=== PATIENT | male | born 1995 | race Caucasian/White ===

== ENCOUNTER → 2024-10-01 10:43 | Outpatient (CLI) | payer OTHER, SELFPAY ==
--- NOTE | 2024-10-02 14:09 | ST.SWALLOW ---
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 He was referred by Dr. Keller who reported oropharyngeal and laryngeal structures to be WNL. According to the pt, he has been having swallow difficulty with foods such as rice, chicken, steak and fries and liquids for the past 5-6 years. He noted that when he wakes up in the morning, he will sometimes be unable to drink water. Additionally, he described episodes of drinking water after a few bites of food and the water then returns to his mouth. Solids are not regurgitated. When asked where he feels the food get stuck, he pointed to his neck near the sternal notch; but also noted he feels tension above his larynx as though he has to push the food/liquid down. Pt denied a PMH of GERD or head/neck injury or surgery. When asked about any neurological diagnosis, the pt responded with no, but my lower body has been getting progressively weaker over the past 4-5 years. He stated that his hips, knees and ankles will unexpectedly give out'. He described walking as slow and not right. Pt denied weakness in his arms, hands or upper body. He added that he often has GI/stomach issues/diarrhea unexpectedly. Subjective Pt was seated in the flouroscopy chair with directions Observations and procedures explained for him. He indicated he understood and agreed to proceed. Patient Positioning Position View Lat-A/P Imaging Lateral View Textures Administered Trials Presented Thin Liquid via Spoon (IDDSI 0),Thin Liquid via Cup ( IDDSI 0),Extremely Thick Liquid via Spoon (IDDSI 4), Regular (IDDSI 7) Barium Tablet Yes The IDDSI Framework Protocol: IDDSI.1 Oral Impairment Source: The Modified Barium Swallow Impairment Profile (MBSImP??) Lip Closure No labial escape Tongue Control Cohesive bolus between tongue to palatal seal During Bolus Hold Bolus Preparation/ Timely & efficient chewing & mashing Mastication Bolus Transport/ Brisk tongue motion Lingual Motion Oral Residue Complete oral clearance,Residue collection on oral structures Location Tongue Additional Oral *OME indicated facial/labial/velar structures to be Impairment WNL. Observations *Lingually, at rest and with protrusion, slight bilateral muscle fasciculations were observed on the lateral surface of the tongue. ROM, strength and speed of his tongue appeared to be WNL. *DKS was observed to be WNL. *Dentition natural and in good hygiene *Mastication observed with rotary chew pattern. *Good bolus formation, control and AP transition. *Velopharyngeal closure was WNL. Pharyngeal Impairment Source: The Modified Barium Swallow Impairment Profile (MBSImP??) Soft Palate No bolus between soft palate & pharyngeal wall Elevation Laryngeal Elevation Part.sup.move.thyroid cart/part.approx.arytenoids to epiglot.petiole Anterior Hyoid Partial anterior movement Excursion Epiglottic Movement Complete inversion Laryngeal Vestibular Complete; no air/contrast in laryngeal vestibule Closure Pharyngeal Stripping Present - complete Wave Pharyngoesophageal Complete distention & complete duration; no obstruction Segment Opening of flow Tongue Base Narrow column of contrast/air betwn tongue base & post. Retraction pharyngeal wall Pharyngeal Residue Collection of residue within/on pharyngeal structures Location Diffuse (>3 areas) Additional *Pt reported throat tension/pressure with all trials Pharyngeal *Reduced base of tongue retraction strength Impairment *Reduced hyolaryngeal elevation and movement Observations *Complete epiglottal inversion *Pooled residual in valeculla, pyriforms, aryepiglottic folds and posterior pharyngeal wall; pooling cleared with subsequent dry swallows *Flash penetration of laryngeal vestibule observed *No tracheal aspiration observed *In lateral position across all trials, the boluses ( liquid, semi-solid and solid) appeared to move through the upper esophagus more slowly than expected A/P View Textures Administered Trials Presented Thin Liquid via Cup (IDDSI 0) The IDDSI Framework Protocol: IDDSI.1 A/P View Observations Esophageal Clearance Esophageal retention Upright Position Esophageal Function Slowed Clearing Additional A-P Thin barium liquid and 13mm calibrated barium tablet Observations were trialed *Esophageal retention observed; retained contrast partially cleared with water swallow *Thin barium cleared the esophagus to the stomach in a timely manner *Barium tablet stopped at LES (pt reported globus sensation) then cleared to the stomach Clinical Impressions Dysphagia Type Pharyngeal Findings *Pt presented with oral phase of swallow WNL; However , lingual fasciculations were observed with the tongue at rest. Functionally mastication, bolus control and AP transition was observed to be WNL *Overall pharyngeal weakness was noted with reduced base of tongue strength, partial hyolaryngeal elevation and movement and pooling throughout the pharyngeal cavity. This observation is unusual for a 28 year old person *Esophageal retention with slowed clearance was observed, which is also unusual for a 28 year old person Given the pt's report of lower body progressive weakness, GI issues and the above lingual, pharyngeal and esophageal observations, neurological etiology is suspected. As these s/sx have been occurring for 4-6 years, per pt report, a referral to neurology is recommended for further assessment of neuromotor functioning. The above results and recommendations were reviewed with he pt. He stated that he and his are expecting a baby in December and he he is concerned that his lower body weakness may be a problem. Rehabilitation Good Potential Patient Appropriate Yes: Base of tongue exercises for Therapy Recommendations Diet Comments No diet change Treatment Plan Recommended Neurology Referrals
== END ==
LOC: RAD 10:44
PROVIDERS: Referring Provider Otolaryngology; Visit Provider Otolaryngology
DX: R13.13 Dysphagia, pharyngeal phase (principal)
CPT/HCPCS: 74230; 92611

== ENCOUNTER 2025-02-12 17:00 | Outpatient (RCR) | payer OTHER, SELFPAY ==
--- NOTE | 2025-01-15 18:28 | ST.OPIE ---
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 Clinical Swallow Evaluation Start: 01/15/25 17:52 Freq: Status: Active Protocol: Document 01/15/25 17:52 SS (Rec: 01/15/25 18:27 SS [email or web address]) Clinical Swallow Evaluation Session Time Visit Start Time 16:15 Visit Stop Time 16:35 Total Visit Minutes 20 Visit Information Visit Number 04/05 Plan of Care Dates 01/15/25-04/17/25 Insurance [employer] ([id number] [phone], [id number] [phone]) Information Referral Referring Provider Sam Keller MD, ENT; PCP Dr Hirsch [facility] Reason for Referral Dysphagia Setting Assessment Location Outpatient Care Visit Type Note Type Initial evaluation Next Note Type Next Note Type Treatment Note Patient Information Identification Type Name History Shaka Shaffer a 29-year-old male, referred for a clinical swallow evaluation by Dr. Keller due to concerns regarding oropharyngeal dysphagia. According to the pt, he has been having swallow difficulty with foods such as rice, chicken, steak, and fries for the past 5-6 years. He noted that when he wakes up in the morning, he will sometimes be unable to drink water. Additionally, he described episodes of drinking water after a few bites of food to clear globus sensation and the water then returns to his mouth. It can take him up to 10-20 minutes to clear the bolus and it often feels as if he is choking. Solids are not regurgitated. When asked where he feels the food get stuck, he pointed to his neck near the sternal notch and to his chest. Liquid wash does help, though does not seem to clear sensation fully. Pt denied a PMH of GERD or head/ neck injury or surgery. He denied unintentional weight loss. An MBSS was completed on 10/02/24, with findings of ? oral phase of swallow WNL; However, lingual fasciculations were observed with the tongue at rest. Functionally mastication, bolus control and AP transition was observed to be WNL. Overall pharyngeal weakness was noted with reduced base of tongue strength , partial hyolaryngeal elevation and movement and pooling throughout the pharyngeal cavity. Esophageal retention with slowed clearance was observed.? Flash penetration was observed, which is a normal variation for pt?s age. Aspiration not observed. Neurology referral was recommended. Please see full MBSS report. No other significant prior medical history. Pt does report progressive weakness in his lower extremities and is seeing a neurologist tomorrow. Pt was seen by GI last week and an upper endoscopy was completed with pt reporting results were normal. TAR DISTILLATION SUPERVISOR to attempt to obtain records. Subjective Pt arrived to the evaluation on time. He was engaged Observations and motivated throughout. Reported by Patient/Caregiver Pain/Discomfort Yes Location Neck,Chest Other Symptoms Choking,Difficulty swallowing solids,Food gets stuck, Other Comment Globus sensation Current Diet Regular (IDDSI 7) Baseline Feeding Independent in self-feeding Method Type of Patient EAT-10 Questionnaire (e.g., EAT-10, MDADI, etc. ) Results The Eating Assessment Tool (EAT-10) was administered. This tool is a symptom-specific outcome instrument for dysphagia. It consists of ten statements regarding the pt?s swallow and the pt scores each on a scale of 0-4, with 0 indicating no problem and 4 indicating a severe problem. A score of >3/40 could indicate a swallowing impairment that warrants further assessment/treatment. The pt scored a 14/40, indicating the need for further assessment. The IDDSI Framework Protocol: IDDSI.1 Objective Assessment Mental Status Alert,Responsive,Cooperative Oral Integrity WFL Dentition Within normal limits Lip Function Within normal limits Tongue Function Mild impairment Observations of Involuntary movement(s) Tongue at Rest Tongue Protrusion Involuntary movement(s) Jaw Function Within normal limits Hard/Soft Palate Within normal limits Function Comment Pt?s oral health is good. Pt has his own dentition with dental work noted. He reports brushing his teeth 2x daily. CRANIAL NERVE EXAM CN V (Trigeminal): intact b/l CN VII (Facial): intact b/l CN IX/X (Glossopharyngeal/Vagus): intact b/l CN XII (Hypoglossal): Impaired b/l (fasciculations at rest) LARYNGEAL FUNCTION EXAM Secretion Management: WNL Maximum Phonation Time (MPT): 25.3 seconds = Average S/Z Ratio: 20.5/22.3 = 0.92; WNL Voice Quality: Perceptually WNL Pitch Range: Perceptually WNL Food and Liquid Trials Position During Upright (90 degrees) Assessment Liquids Trialed Thin (IDDSI 0) Solid Trials Soft & Bite-sized (IDDSI 6),Regular (IDDSI 7) Administration Type Cup single sip,Cup consecutive sips,Straw,Self-feeding Oral Impairment Within normal limits Oral Phase Comments Pt observed across trials of thin liquids via cup and straw, soft/bite sized, and regular textures. Pt exhibited adequate bolus retrieval without anterior loss. Timely bolus manipulation and complete oral clearance. MBSS results as follows: Lip Closure: No labial escape Tongue Control During Bolus Hold: Cohesive bolus between tongue to palatal seal Bolus Preparation/Mastication: Timely & efficient chewing & mashing Bolus Transport/Lingual Motion: Brisk tongue motion Oral Residue: Complete oral clearance, Residue collection on oral structures (tongue) Pharyngeal Mildly impaired Impairment Pharyngeal Phase Clinical signs/symptoms of possible pharyngeal Comments dysphagia included globus sensation across trials, with pt pointing at his neck and chest. No overt s/sx of aspiration. Per MBSS results: Soft Palate Elevation: No bolus between soft palate & pharyngeal wall Laryngeal Elevation: Partial superior movement of the thyroid cartilage, partial approximation of the arytenoids to epiglottic petiole Anterior Hyoid Excursion: Partial anterior movement Epiglottic Movement: Complete inversion Laryngeal Vestibular Closure: Complete; no air/contrast in laryngeal vestibule Pharyngeal Stripping Wave: Present - complete Pharyngoesophageal Segment Opening: Complete distention & complete duration; no obstruction of flow Tongue Base Retraction: Narrow column of contrast/air between tongue base & posterior pharyngeal wall Pharyngeal Residue: Collection of residue within/on pharyngeal structures Flash penetration was noted, though no deep penetration or aspiration. Pharyngeal residue cleared with multiple dry swallows. Fatigue/Endurance Endurance WNL The IDDSI Framework Protocol: IDDSI.1 Findings Swallowing Function Pharyngoesophageal phase dysphagia Severity of Swallow Mildly impaired Impairment Contributing Factors Reduced laryngeal excursion,Excessive pharyngeal to Swallow residue Impairment Prognosis Good Based on Cognitive status,Family support,Age Comment Pt presents with mild pharyngoesophageal dysphagia, with unknown etiology, though is undergoing neurological testing. Based on pt?s current good oral health status and intact immune function, pt remains at a low risk of pulmonary compromise associated with aspiration at this time. Pt does not appear to be at risk for malnutrition/dehydration due to no changes to appetite and no reported unintentional weight loss. Diet modification/non oral nutrition are not indicated. Recommend pt continue eating regular diet while self- selecting softer foods to maintain nutrition and hydration. Though GI testing was not abnormal, pt may benefit from additional testing given esophageal retention with slowed clearance observed on MBSS (e.g., esophageal manometry). The plan is for the pt to participate in speech therapy services at a frequency of 1x every week for 3 months to address pharyngeal dysphagia in order to improve swallowing safety and efficiency as well as overall quality of life. Prognosis for improvement is good given pt?s motivation and support system. Impact on Safety and No limitations Functioning Recommendations Instrumental No Assessment Swallowing Treatment Yes Frequency 1x/week Duration 3 months Recommended Solids Regular (IDDSI 7) Recommended Liquids Thin (IDDSI 0) Other Multiple swallows and liquid wash to clear residue Recommendations Smaller more frequent meals throughout the day Upright position during intake and for 30 minutes after Safety Precautions/ Remain upright (90 degrees) during all oral intake, Swallowing Upright position at least 30 minutes after meals,Small Recommendations bites and sips when eating,Slow rate; swallow between bites,Multiple swallows,Alternate liquids and solids Medication As Tolerated Recommendations Referrals Recommended Gastroenterology,Neurology Referrals Education Patient/Caregiver Described results of evaluation,Patient expressed Education understanding of evaluation,Patient expressed agreement with goals & treatment plans Goals Short-term Goals 1. Patient will demonstrate appropriate technique/form while completing pharyngeal exercises in order to improve hyolaryngeal excursion, laryngeal elevation, and base of tongue retraction to increase efficiency of swallowing. 2. Patient will complete daily exercises as evidenced by patient report and/or HEP tracker in order to improve swallowing safety and efficiency. 3. Patient will utilize swallowing strategies in 90% of opportunities independently in order to reduce pharyngeal residue and globus sensation with PO intake. Long-term Goals 1. Patient will consume the safest and least restrictive diet for adequate nutrition and hydration following participation in [facility] services with minimal to no sensation of pharyngeal residue. 2. Patient will improve self-perception of swallowing from a baseline of on EAT-10 following participation in [facility] rehabilitative services.
--- NOTE | 2025-01-15 18:28 | ST.OPPOC ---
Addendum entered and electronically signed by Jimenez Springer 01/15/25 18:31: POC sent to referring provider and PCP requesting signature. Original Note: Physical, Occupational & Speech Therapy At [facility] Visit Care Team Role Provider Type Nolan Hawley DO Primary Care Provider Non-Staff Address: [place], [address] Sam Keller MD Attending Provider Physician Family Provider Referring Provider Address: [address] [place] [address], [address] Speech Pathology Plan of Care Plan of Care Dates 01/15/25-04/17/25 Referring Provider Sam Keller MD, ENT; PCP Shari Olmos [facility] Patient History Shaka Shaffer a 29-year-old male, referred for a clinical swallow evaluation by Dr. Keller due to concerns regarding oropharyngeal dysphagia. According to the pt, he has been having swallow difficulty with foods such as rice, chicken, steak, and fries for the past 5-6 years. He noted that when he wakes up in the morning, he will sometimes be unable to drink water. Additionally, he described episodes of drinking water after a few bites of food to clear globus sensation and the water then returns to his mouth. It can take him up to 10-20 minutes to clear the bolus and it often feels as if he is choking. Solids are not regurgitated. When asked where he feels the food get stuck, he pointed to his neck near the sternal notch and to his chest. Liquid wash does help, though does not seem to clear sensation fully. Pt denied a PMH of GERD or head/neck injury or surgery. He denied unintentional weight loss. An MBSS was completed on 10/02/24, with findings of ?oral phase of swallow WNL; However, lingual fasciculations were observed with the tongue at rest. Functionally mastication, bolus control and AP transition was observed to be WNL. Overall pharyngeal weakness was noted with reduced base of tongue strength, partial hyolaryngeal elevation and movement and pooling throughout the pharyngeal cavity. Esophageal retention with slowed clearance was observed.? Flash penetration was observed, which is a normal variation for pt?s age. Aspiration not observed. Neurology referral was recommended. Please see full MBSS report. No other significant prior medical history. Pt does report progressive weakness in his lower extremities and is seeing a neurologist tomorrow . Pt was seen by GI last week and an upper endoscopy was completed with pt reporting results were normal. 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 MBS Comments *Pt presented with oral phase of swallow WNL; However, lingual fasciculations were observed with the tongue at rest. Functionally mastication, bolus control and AP transition was observed to be WNL *Overall pharyngeal weakness was noted with reduced base of tongue strength, partial hyolaryngeal elevation and movement and pooling throughout the pharyngeal cavity. This observation is unusual for a 28 year old person *Esophageal retention with slowed clearance was observed, which is also unusual for a 28 year old person Given the pt's report of lower body progressive weakness, GI issues and the above lingual, pharyngeal and esophageal observations, neurologic etiology is suspected. As these s/ sx have been occurring for 4-6 years, per pt report, a referral to neurology is recommended for further assessment of neuromotor functioning . The above results and recommendations were reviewed with he pt. He stated that he and his are expecting a baby in December and he he is concerned that his lower body weakness may be a problem. Recommended Precautions Upright at 90 Degrees,Alternate Liquids/Solids, Small Bites/Sips,Double Swallow Recommended Referrals Neurology,GI Consult Short-term Goals 1. Patient will demonstrate appropriate technique/form while completing pharyngeal exercises in order to improve hyolaryngeal excursion, laryngeal elevation, and base of tongue retraction to increase efficiency of swallowing. 2. Patient will complete daily exercises as evidenced by patient report and/or HEP tracker in order to improve swallowing safety and efficiency. 3. Patient will utilize swallowing strategies in 90% of opportunities independently in order to reduce pharyngeal residue and globus sensation with PO intake. Long-term Goals 1. Patient will consume the safest and least restrictive diet for adequate nutrition and hydration following participation in skilled services with minimal to no sensation of pharyngeal residue. 2. Patient will improve self-perception of swallowing from a baseline of 1440 on EAT-10 following participation in skilled rehabilitative services. Comment: Electronically Signed by: STEPHON Malone 01/15/25 1828 If you are in agreement with this Plan of Care, please return a signed and dated copy. I have reviewed this Plan of Care and certify that the skilled therapy services above are required to meet the patient?s needs. Physician Signature Date Printed Name and Credentials Clinical Instructor Signature Printed Name and Credentials
--- NOTE | 2025-01-15 18:28 | ST.IPDYTX ---
Visit Care Team Role Provider Type Nolan Hawley DO Primary Care Provider Non-Staff Specialty: Family Practice Address: [place], [address] Email: Sam Keller MD Attending Provider Physician Family Provider Referring Provider Specialty: Ear, Nose, Throat Address: [address] [place] [address], [id number] Email: [email or web address] SHRINKER Dysphagia Treatment SHRINKER Dysphagia Treatment Start: 01/15/25 17:52 Freq: Status: Active Protocol: Document 01/15/25 17:52 SS (Rec: 01/15/25 18:27 SS [email or web address]) Dysphagia Treatment Session Time Visit Start Time 16:35 Visit Stop Time 16:55 Total Visit Minutes 20 Visit Information Visit Number 1 Plan of Care Dates 01/15/25-04/17/25 Insurance [facility] ([id number] x1, [id number] x24) Information Setting Assessment Location Outpatient Care Visit Type Note Type Treatment Note Next Note Type Next Note Type Treatment Note Patient Information Identification Type Name Subjective Pt arrived to the evaluation on time. He was engaged Observations and motivated throughout. Treatment Liquids Trialed Thin (IDDSI 0) Solids Trialed Purred (IDDSI 4) Administration Type Cup Single Sip,Self-Feeding Pharyngeal Sitting Upright (90 deg),Double Swallow,Effortful Strategies Swallow,Small Bites and Sips,Alternate Liquids/Solids Treatment Activities Education re: MBSS results, recommendations, and rehabilitative exercises provided. The IDDSI Framework Protocol: IDDSI.1 Assessment Patient Response to Excellent Treatment Rehab Potential Good Assessment of SHRINKER provided education re: normal swallow anatomy and Improvement physiology and the results of the MBSS. Utilized a visual diagram to improve pt?s understanding. Pt expressed understanding re: results. Educated pt re: recommended swallow strategies to reduce pharyngeal residue and esophageal retention, including small bites/sips, slow rate, alternating liquids and solids, upright positioning during PO intake and for 30 minutes after, multiple swallows, and smaller meals throughout the day. Pt verbalized understanding. Introduced rehabilitative exercises on this date to target pharyngeal dysphagia to target hyolaryngeal excursion, laryngeal elevation, and base of tongue retraction for improved swallowing efficiency. Implemented isometric and isokinetic Chin Tuck Against Resistance (CTAR) with the goal of strengthening suprahyoid and submental musculature for improved hyolaryngeal elevation and excursion. Provided education re: accurate form for completing the exercise . Provided pt with a ball to complete the exercises. Pt completed isometric CTAR for 15-seconds x 5 reps. Pt completed isokinetic CTAR 10 reps x 3 sets. One minute of rest completed between each set. Pt endorsed feeling appropriately challenged at the end of both exercises. Pt benefited from SHRINKER cueing, modeling, and verbal instruction during the task. Pt with good form on this date. Instructed pt in the Effortful Swallow to improve tongue to palate contact, base of tongue retraction, hyolaryngeal elevation and excursion, pharyngeal constriction, and opening of the upper esophageal sphincter for improved swallowing safety and efficiency . Provided education re: form and goal of the exercise for decreased pharyngeal residue. Bolus-driven effortful swallows completed with the following consistencies: Thin: 10/10 successful swallows; average of 1-2 swallows per bolus. Puree: 10/10 successful swallows; average of 1-2 swallows per bolus. Reviewed HEP at the conclusion of the session, with pt verbalizing understanding. HEP Recommendation: Isometric CTAR 15 seconds x 5 reps (1-minute rest between each), Isokinetic CTAR 10 reps x 3 sets (1-minute rest between each), effortful swallow 30-50 reps with thin liquid and puree. Pt participated well in the treatment session on this date. Extensive education re: MBSS results, recommendations, and rehabilitative exercises provided. Pt expressed understanding and motivation to participate in HEP. Plan for pt to implement HEP and report back progress in the following session. Plan to advance CTAR if appropriate in following session and to start effortful swallows with soft and bite-sized. Also plan to introduce the Amy in a future session if pt is consistent with exercises provided today. Continue targeting pharyngeal dysphagia at a frequency of once a week given patient report and progress with HEP. Recommendations Recommendations Continue Current Diet Liquids Order Thin (IDDSI 0) Diet Order Regular (IDDSI 7) Medication As Tolerated Recommendations Aspiration Precautions Recommended Upright at 90 Degrees,Alternate Liquids/Solids,Small Precautions Bites/Sips,Double Swallow Treatment Plan Appropriate for Yes Continued Therapy Dysphagia Goals STG1. Patient will demonstrate appropriate technique/ form while completing pharyngeal exercises in order to improve hyolaryngeal excursion, laryngeal elevation, and base of tongue retraction to increase efficiency of swallowing. STG2. Patient will complete daily exercises as evidenced by patient report and/or HEP tracker in order to improve swallowing safety and efficiency. STG3. Patient will utilize swallowing strategies in 90% of opportunities independently in order to reduce pharyngeal residue and globus sensation with PO intake. LTG1. Patient will consume the safest and least restrictive diet for adequate nutrition and hydration following participation in skilled services with minimal to no sensation of pharyngeal residue. LTG2. Patient will improve self-perception of swallowing from a baseline of on EAT-10 following participation in skilled rehabilitative services. Referrals/Other Recommended Neurology,GI Consult Referrals
--- NOTE | 2025-01-22 12:08 | ST.IPDYTX ---
Visit Care Team Role Provider Type Nolan Hawley DO Primary Care Provider Non-Staff Specialty: Family Practice Address: [place], [address] Email: Sam Keller MD Attending Provider Physician Family Provider Referring Provider Specialty: Ear, Nose, Throat Address: [address] [place] [address], [id number] Email: [email or web address] [employer] REFINISHER Dysphagia Treatment [employer] REFINISHER Dysphagia Treatment Start: 01/15/25 17:52 Freq: Status: Active Protocol: Document 01/22/25 11:58 SS (Rec: 01/22/25 12:08 SS [email or web address]) Dysphagia Treatment Session Time Visit Start Time 11:30 Visit Stop Time 12:00 Total Visit Minutes 30 Visit Information Visit Number 2 Plan of Care Dates 01/15/25-04/17/25 Insurance [email or web address] ([id number] x1, [id number] x24) Information Setting Assessment Location Outpatient Care Visit Type Note Type Treatment Note Next Note Type Next Note Type Treatment Note Patient Information Identification Type Name Subjective Pt arrived to the session on time. He was engaged and Observations motivated throughout. Treatment Liquids Trialed Thin (IDDSI 0) Solids Trialed Purred (IDDSI 4),Soft & Bite-sized (IDDSI 6) Administration Type Cup Single Sip,Self-Feeding Pharyngeal Sitting Upright (90 deg),Double Swallow,Effortful Strategies Swallow,Small Bites and Sips,Alternate Liquids/Solids Treatment Activities Reviewed swallowing function and completion of HEP since the last session. Implemented rehabilitative exercises and introduced the Amy Maneuver. The IDDSI Framework Protocol: IDDSI.1 Assessment Patient Response to Excellent Treatment Rehab Potential Good Assessment of [employer] reviewed swallowing function over the past week. Pt Improvement expressed he has noticed reduced sensation of pharyngeal residue, particularly when he eats after completing his exercises. He has been completing his HEP daily. Pt was seen by neurology last week and underwent labs and a brain MRI with follow-up appointment scheduled in 3 months. Continued implementing rehabilitative exercises on this date to target pharyngeal dysphagia to target hyolaryngeal excursion, laryngeal elevation, and base of tongue retraction for improved swallowing efficiency . Implemented isometric and isokinetic Chin Tuck Against Resistance (CTAR) with the goal of strengthening suprahyoid and submental musculature for improved hyolaryngeal elevation and excursion. Advanced the exercise today. Pt completed isometric CTAR for 30- seconds x 5 reps. He completed isokinetic CTAR 15 reps x 3 sets. One minute of rest completed between each set . Good form with no need for cueing. Pt again endorsed feeling challenged at the end of both exercises. Instructed pt in the Effortful Swallow to improve tongue to palate contact, base of tongue retraction, hyolaryngeal elevation and excursion, pharyngeal constriction, and opening of the upper esophageal sphincter for improved swallowing safety and efficiency . Bolus-driven effortful swallows completed with the following consistencies: Thin: 30/30 successful swallows; average of 1-2 swallows per bolus. Puree: 27/27 successful swallows; average of 1-2 swallows per bolus. Soft and bite-sized: 35/35 successful swallows; average of 1-2 swallows per bolus. B[employer]ING [employer] REFINISHER provided education in utilizing 2 swallows if needed, however, pt completed most trials with 1 swallow, though he did express the feeling of residue occasionally. Explained how residue could build and the importance of clearing materials prior to taking another bite. Pt was able to use multiple swallows and liquid wash to clear residue independently following education. Introduced the Amy Maneuver, targeting improved hyolaryngeal movement, pharyngeal pressure, UES opening , and esophageal pressure. Pt completed x10 reps while holding his swallow at the peak for about 3-4 seconds, then releasing. Good laryngeal elevation to palpation. Reviewed HEP at the conclusion of the session, with pt verbalizing understanding. HEP Recommendation: Isometric CTAR 30 seconds x 5 reps (1-minute rest between each), Isokinetic CTAR 15 reps x 3 sets (1-minute rest between each), effortful swallow 30-50 reps with thin liquid, puree, and soft an bite- sized, Amy 30-50 reps. Pt participated well in the treatment session with good progress noted with overall swallowing function and completing of HEP. Continue targeting pharyngeal dysphagia at a frequency of once a week given pt report and progress with HEP. Recommendations Recommendations Continue Current Diet Liquids Order Thin (IDDSI 0) Diet Order Regular (IDDSI 7) Medication As Tolerated Recommendations Comments No diet change Aspiration Precautions Recommended Upright at 90 Degrees,Alternate Liquids/Solids,Small Precautions Bites/Sips,Double Swallow Treatment Plan Appropriate for Yes Continued Therapy Dysphagia Goals STG1. Patient will demonstrate appropriate technique/ form while completing pharyngeal exercises in order to improve hyolaryngeal excursion, laryngeal elevation, and base of tongue retraction to increase efficiency of swallowing. STG2. Patient will complete daily exercises as evidenced by patient report and/or HEP tracker in order to improve swallowing safety and efficiency. STG3. Patient will utilize swallowing strategies in 90% of opportunities independently in order to reduce pharyngeal residue and globus sensation with PO intake. LTG1. Patient will consume the safest and least restrictive diet for adequate nutrition and hydration following participation in skilled services with minimal to no sensation of pharyngeal residue. LTG2. Patient will improve self-perception of swallowing from a baseline of on EAT-10 following participation in skilled rehabilitative services. Referrals/Other Recommended Neurology,GI Consult Referrals
--- NOTE | 2025-01-29 12:54 | ST.IPDYTX ---
Addendum entered and electronically signed by Jimenez Springer 01/29/25 13:14: Note sent to PCP per pt request. Original Note: Visit Care Team Role Provider Type Nolan Hawley DO Primary Care Provider Non-Staff Specialty: Family Practice Address: [place], [address] Email: Sam Keller MD Attending Provider Physician Family Provider Referring Provider Specialty: Ear, Nose, Throat Address: [address] [place] [address], [address] Email: [email or web address] HARNESS MAKER Dysphagia Treatment HARNESS MAKER Dysphagia Treatment Start: 01/15/25 17:52 Freq: Status: Active Protocol: Document 01/29/25 12:27 SS (Rec: 01/29/25 12:54 SS [email or web address]) Dysphagia Treatment Session Time Visit Start Time 12:15 Visit Stop Time 12:45 Total Visit Minutes 30 Visit Information Visit Number 3 Plan of Care Dates 01/15/25-04/17/25 Insurance [employer] ([id number] x1, [id number] x24) Information Setting Assessment Location Outpatient Care Visit Type Note Type Treatment Note Next Note Type Next Note Type Treatment Note Patient Information Identification Type Name Subjective Pt arrived to the session on time. He was engaged and Observations motivated throughout. Treatment Liquids Trialed Thin (IDDSI 0) Solids Trialed Soft & Bite-sized (IDDSI 6),Regular (IDDSI 7) Administration Type Cup Single Sip,Self-Feeding Pharyngeal Sitting Upright (90 deg),Double Swallow,Effortful Strategies Swallow,Small Bites and Sips,Alternate Liquids/Solids Treatment Activities Reviewed swallowing function and completion of HEP since the last session. Implemented rehabilitative exercises. Extensive education re: pharyngeal and esophageal phases of swallow. Discussed recommendation for further GI testing. Note sent to pt's PCP, Dr. Hawley, per pt request for coordination of care. The IDDSI Framework Protocol: IDDSI.1 Assessment Patient Response to Excellent Treatment Rehab Potential Good Assessment of HARNESS MAKER reviewed swallowing function over the past week. Pt Improvement expressed reduced sensation of pharyngeal residue during meals. He continues to note a sensation of pressure around his chest and suprasternal notch that is likely referred sensation from esophagus. Endoscopy was WNL per pt report. Given esophageal phase impairments observed during MBSS and pt reported symptoms, recommend additional GI assessment, such as an esophageal manometry. Treatment note sent to pt?s PCP, Dr. Hawley per pt request for coordination of care . Pt has been diligent with completing HEP daily and continues to use multiple swallows and liquid wash to relieve sticking sensation in throat and chest. Continued implementing rehabilitative exercises on this date to target pharyngeal dysphagia to target hyolaryngeal excursion, laryngeal elevation, and base of tongue retraction for improved swallowing efficiency . Instructed pt in the Effortful Swallow to improve tongue to palate contact, base of tongue retraction, hyolaryngeal elevation and excursion, pharyngeal constriction, and opening of the upper esophageal sphincter for improved swallowing safety and efficiency . Bolus-driven effortful swallows completed with the following consistencies: Soft and bite-sized: 42/42 successful swallows; average of 1-2 swallows per bolus. Regular: 25/25 successful swallows; average of 2 swallows per bolus. Pt was able to use multiple swallows and liquid wash to clear residue independently today. Reviewed HEP at the conclusion of the session, with pt verbalizing understanding. HEP Recommendation: Isometric CTAR 30 seconds x 5 reps (1-minute rest between each), Isokinetic CTAR 15 reps x 3 sets (1-minute rest between each), effortful swallow 30-50 reps with soft and bite-sized and regular textures, Amy 30-50 reps. Pt participated well in the treatment session with good progress noted with overall swallowing function and completion of HEP. Recommend additional GI testing, such as esophageal manometry, to further assess esophageal phase impairments, specifically esophageal retention, impacting overall swallowing efficiency. Continue targeting pharyngeal dysphagia to advance exercises given pt report and progress with HEP. Reduce frequency to every other week as pt now independent with HEP. Recommendations Recommendations Continue Current Diet Liquids Order Thin (IDDSI 0) Diet Order Regular (IDDSI 7) Medication As Tolerated Recommendations Comments No diet change Aspiration Precautions Recommended Upright at 90 Degrees,Alternate Liquids/Solids,Small Precautions Bites/Sips,Double Swallow Treatment Plan Appropriate for Yes Continued Therapy Dysphagia Goals STG1. Patient will demonstrate appropriate technique/ form while completing pharyngeal exercises in order to improve hyolaryngeal excursion, laryngeal elevation, and base of tongue retraction to increase efficiency of swallowing. STG2. Patient will complete daily exercises as evidenced by patient report and/or HEP tracker in order to improve swallowing safety and efficiency. STG3. Patient will utilize swallowing strategies in 90% of opportunities independently in order to reduce pharyngeal residue and globus sensation with PO intake. LTG1. Patient will consume the safest and least restrictive diet for adequate nutrition and hydration following participation in skilled services with minimal to no sensation of pharyngeal residue. LTG2. Patient will improve self-perception of swallowing from a baseline of on EAT-10 following participation in skilled rehabilitative services. Referrals/Other Recommended Neurology,GI Consult Referrals
--- NOTE | 2025-02-12 17:24 | ST.OPDC.SWTH ---
Visit Care Team Role Provider Type Nolan Hawley DO Primary Care Provider Non-Staff Specialty: Family Practice Address: [place], [address] Email: Sam Keller MD Attending Provider Physician Family Provider Referring Provider Specialty: Ear, Nose, Throat Address: [address] [place] [address], [address] Email: [email or web address] Dysphagia Treatment [employer] Dysphagia Treatment Start: 01/15/25 17:52 Freq: Status: Active Protocol: Document 02/12/25 17:13 SS (Rec: 02/12/25 17:24 SS [email or web address]) Dysphagia Treatment Session Time Visit Start Time 16:55 Visit Stop Time 17:15 Total Visit Minutes 20 Visit Information Visit Number 4 Plan of Care Dates 01/15/25-04/17/25 Insurance [employer] ([id number] x1, [id number] x24) Information Setting Assessment Location Outpatient Care Visit Type Note Type Discharge Summary Patient Information Identification Type Name Subjective Pt arrived to the session on time. He was engaged and Observations motivated throughout. Treatment Treatment Activities Reviewed swallowing function and completion of HEP since the last session. Reviewed rationale and form for each of the provided rehabilitative exercises. Provided handouts for increased recall of information. Re-administered EAT-10 to assess swallowing function following ST services. Discharge completed today. The IDDSI Framework Protocol: IDDSI.1 Assessment Patient Response to Excellent Treatment Rehab Potential Good Assessment of [employer] reviewed swallowing function over the past two Improvement weeks. Pt expressed he has not experienced choking sensation or globus sensation in about a month now. He discussed recommendation for GI referral with his PCP given ongoing sensation of pressure around his chest and suprasternal notch with referral now in process. Pt has been diligent with completing HEP daily and continues to use multiple swallows and liquid wash to relieve sticking sensation in throat and chest. Reviewed rehabilitative exercises on this date for pharyngeal dysphagia targeting hyolaryngeal excursion, laryngeal elevation, and base of tongue retraction for improved swallowing efficiency. Pt demonstrated excellent understanding of all exercises, including the Effortful Swallow, Isometric CTAR, Isokinetic CTAR, and the Amy Maneuver. The Eating Assessment Tool (EAT-10) was re-administered . This tool is a symptom-specific outcome instrument for dysphagia. It consists of ten statements regarding the patient?s swallow and the patient scores each on a scale of 0-4, with 0 indicating no problem and 4 indicating a severe problem. A score of >3/40 could indicate a swallowing impairment that warrants further assessment/treatment. The pt scored a 1/40, which is a significant improvement from initiation of care, when pt scored 14/40. Pt has been seen for 4 speech therapy visits addressing pharyngoesophageal dysphagia since the start of care. He has attended at a frequency of once a week and has been motivated and engaged throughout. Treatment has included education re: normal swallowing anatomy and physiology, results of his MBSS, and training in recommended swallowing strategies. Additionally, treatment has included training in rehabilitative exercises to target oropharyngeal dysphagia including isometric and isokinetic Chin Tuck Against Resistance (CTAR), the Effortful Swallow, and Amy. Pt has benefited from education re: form and goal of the exercises and [employer] cueing and modeling during the exercises. Since the start of care, pt has improved in self-perception of swallowing to a current perception of 1/40 (from 14/40). Pt also endorses improvement in swallowing during meals. Pt has been diligent in daily HEP practice. Pt plans to continue competing his HEP a few times a week to maintain the gains he had made with speech therapy services. The plan is to discharge the pt from speech therapy services as he has met his LTG and STG goals targeting dysphagia. Continue to recommend GI referral to target esophageal phase impairments noted on MBSS. Recommend he request a referral from his PCP if he notes changes with his voice and swallowing. Pt agreeable to plan. Recommendations Recommendations Continue Current Diet Liquids Order Thin (IDDSI 0) Diet Order Regular (IDDSI 7) Medication As Tolerated Recommendations Comments No diet change Aspiration Precautions Recommended Upright at 90 Degrees,Alternate Liquids/Solids,Small Precautions Bites/Sips,Double Swallow Treatment Plan Appropriate for No Continued Therapy Dysphagia Goals STG1. Patient will demonstrate appropriate technique/ form while completing pharyngeal exercises in order to improve hyolaryngeal excursion, laryngeal elevation, and base of tongue retraction to increase efficiency of swallowing. 02/12/25: goal met. STG2. Patient will complete daily exercises as evidenced by patient report and/or HEP tracker in order to improve swallowing safety and efficiency. 02/12/25: goal met. STG3. Patient will utilize swallowing strategies in 90% of opportunities independently in order to reduce pharyngeal residue and globus sensation with PO intake. 02/12/25: goal met. LTG1. Patient will consume the safest and least restrictive diet for adequate nutrition and hydration following participation in skilled services with minimal to no sensation of pharyngeal residue. 02/12/25: goal met. LTG2. Patient will improve self-perception of swallowing from a baseline of on EAT-10 following participation in skilled rehabilitative services. 02/12/25: goal met. Referrals/Other Recommended Neurology,GI Consult Referrals
== END 2025-02-17 13:01 | disposition home or self-care (01) ==
LOC: SP 17:00
PROVIDERS: Family Provider Otolaryngology; PCP Family Medicine; Referring Provider Otolaryngology; Visit Provider Otolaryngology
DX: R13.13 Dysphagia, pharyngeal phase (principal); R13.19 Other dysphagia
CPT/HCPCS: 92526; 92610